=== PATIENT | male | born 1970 | race Caucasian/White ===

== ENCOUNTER 2024-01-25 07:59 | Day surgery (SDC) | payer BC ==
[2024-01-24 09:34] LABS: Absolute Eosinophils 0.3 K/uL (0-0.5); Absolute Lymphocytes (CBC) 1.3 K/uL (0.7-4.9); Absolute Monocytes 0.4 K/uL (0.1-1.3); Absolute Neutrophil 2.8 K/uL (1.8-8.0); Basophils % 0.5 % (0-1.3); Eosinophils % 6.6 % (0-4.4); Hematocrit 44.2 % (39.6-49.0); Lymphocytes % 27.4 % (15.3-44.8); MCH 31.8 pg (27.0-35.0); MCHC 33.8 g/dL (32.0-36.0); MCV 93.9 fL (80-100); MPV 8.8 fL (7.6-11.3); Monocytes % 9.1 % (3.3-12.3); Neutrophils % 56.4 % (41.7-73.7); Nucleated Red Blood Cells % 0.1 % (0-0); Platelets 173 thou/uL (152-406); RBC Red Blood Cell Count 4.71 M/uL (4.33-5.43); Red Cell Distribution Width 13.3 % (12.1-15.2)
[2024-01-24 09:45] LABS: PTT, Activated Partial Thromb 29.1 SECONDS (24.3-36.9); Protime INR 0.98
[2024-01-24 09:47] LABS: Anion Gap 7.8 mEq/L (5.0-15.0); Potassium 3.8 mEq/L (3.5-5.1)
[2024-01-25] MEDS ORDERED: NA CHLORIDE 0.9% 500 ML ONE (08:00)
[2024-01-25 08:31] VITALS: TEMP 97.8
[2024-01-25] MEDS ORDERED: MIDAZOLAM HCL 2 MG/2 ML INJ ONE (08:50)
[2024-01-25] MEDS ORDERED: HEPARIN 10,000 UNIT/10 ML VIAL IV ONE (08:50)
[2024-01-25] MEDS ORDERED: LIDOCAINE 1% 20 ML MDV ONE (08:50)
[2024-01-25] MEDS ORDERED: HEPA 1000U/500MLS 2,000 UNIT/1,000 ML BAG IV ONE (08:50)
[2024-01-25] MEDS ORDERED: TICAGRELOR 90 MG TABLET PO ONE (08:51)
[2024-01-25] MEDS ORDERED: ATROPINE SULF 1 MG/10 ML SYR IV ONE (08:51)
[2024-01-25] MEDS ORDERED: CLOPIDOGREL 75 MG TABLET ONE (08:51)
[2024-01-25] MEDS ORDERED: ASPIRIN 325 MG TAB ONE (08:51)
[2024-01-25] MEDS ORDERED: HEPARIN 5000 UNIT/ML 1 ML VIAL ONE (08:51)
[2024-01-25] MEDS ORDERED: FENTANYL CITR 100 MCG/2 ML ONE (08:52)
[2024-01-25 11:02] VITALS: O2SAT 95
[2024-01-25 13:10] VITALS: BP 126/80
--- NOTE | 2024-01-26 19:51 | OP ---
Date of Procedure: 01/25/2024 Surgeon: Roberto Pak Procedures Performed: 1.Left heart catheterization. 2.Selective coronary angiogram. Indication For Procedure: Unstable angina. Abnormal stress test. Complications: None. Estimated Blood Loss: Less than 50 cc. Access: Right radial, closed by TR band. Sedation Time: 20 minutes with 1 of Versed and 25 of fentanyl. Description Of Procedure: After risks, and benefits, and alternatives were explained to the patient, patient agreed to proceed with the procedure and signed informed consent. Patient was brought back to the label cutter, prepped and draped in sterile fashion. Time-out was performed. Sedation was admini stered. Next, right radial access was obtained using ultrasound-guided micropuncture technique. Tig er 4.0 catheter was advanced over a J-wire to the LV cavity. LVEDP was obtained. Pullback did not s how any gradient. Same catheter was used for selective angiogram of the left and right coronary syst ems. At the end of procedure, catheter was removed over a J-wire. Sheath was removed. TR band was applied. Hemostasis was achieved. The patient was moved back to recovery in stable condition. Findings: 1.Left main normal. 2.LAD; mild luminal irregularities. 3.Left circ; mild luminal irregularities. 4.RCA; mid 30% disease, then mild luminal irregularities. 5.LVEDP 8 mmHg. Assessment And Plan: 1.Mild nonobstructive coronary artery disease. 2.Normal filling pressure. The plan will be to continue medical management. BRUNO/MALINA Voice ID: [id number] Report ID: [id number]
--- NOTE | 2024-01-28 16:02 | EKG ---
Test Date: 2024-01-24 Test Time: 10:20:29 Plant Breeder: JENNIFER MEASUREMENT RESULTS: Intervals: Rate: 55 OK: 190 QRSD: 92 QT: 418 QTc: 399 [place]: P: 29 OK: 190 QRS: 56 T: 32 INTERPRETIVE STATEMENTS: Sinus bradycardia Otherwise normal ECG Compared to ECG 11/24/2014 08:50:52 Sinus rhythm no longer present Electronically Signed On 01-28-24 15:54:24 SODA TESTER by Roberto Pak
== END 2024-01-25 11:55 | disposition home or self-care (01) ==
LOC: CCL 07:59
PROVIDERS: ADMIT Internal Medicine; ATTEND Internal Medicine Interventional Cardiology
DX: I25.110 Atherosclerotic heart disease of native coronary artery with unstable angina pectoris (principal); R00.2 Palpitations; I10 Essential (primary) hypertension; F17.220 Nicotine dependence, chewing tobacco, uncomplicated; Z88.8 Allergy status to other drugs, medicaments and biological substances; Z82.49 Family history of ischemic heart disease and other diseases of the circulatory system; Z79.899 Other long term (current) drug therapy
CPT/HCPCS: 93005; 85025; 80048; 36415; 85610; 85730; 93458; 76937; C1893; Q9966; J1644; J2003; J2250; J3010; J7040; 99152; 99153; J0461